=== PATIENT | female | born 1995 | race Caucasian/White ===

== ENCOUNTER 2016-05-03 16:06 | Emergency (ER) | END 2016-05-03 20:07 | disposition home or self-care (01) | DX: S33.9XXA Sprain of unspecified parts of lumbar spine and pelvis, initial encounter (principal); V49.40XA Driver injured in collision with unspecified motor vehicles in traffic accident, initial encounter | CPT/HCPCS: 29125; 72100; 73110; 73130; Z7502; Z7610 ==